=== PATIENT | female | born 1960 | race Caucasian/White ===

== ENCOUNTER 2020-01-04 13:51 | Outpatient (CLI) | payer OTHER ==
[~2020-01-04 13:51] MED LIST: SYNTHROID50 MCG
== END 2020-01-04 14:00 | disposition home or self-care (01) ==
LOC: OFIC 805 13:51
PROVIDERS: ATTEND Otolaryngology Otology & Neurotology
DX: H93.12 Tinnitus, left ear (principal); H69.82 Other specified disorders of Eustachian tube, left ear; H69.92 Unspecified Eustachian tube disorder, left ear; J31.0 Chronic rhinitis

== ENCOUNTER → 2020-02-01 | Outpatient (CLI) | payer OTHER | END | disposition home or self-care (01) | LOC: OFIC 805 15:38 | PROVIDERS: ATTEND Otolaryngology Otology & Neurotology | DX: H93.12 Tinnitus, left ear (principal); H69.82 Other specified disorders of Eustachian tube, left ear; J31.0 Chronic rhinitis ==

== ENCOUNTER → 2020-04-13 | Outpatient (CLI) | payer OTHER | END | disposition home or self-care (01) | LOC: OFIC 805 13:00 | PROVIDERS: ATTEND Otolaryngology Otology & Neurotology | DX: H93.12 Tinnitus, left ear (principal); H90.3 Sensorineural hearing loss, bilateral; H69.82 Other specified disorders of Eustachian tube, left ear ==